=== PATIENT | male | born 1950 | race Caucasian/White ===

== ENCOUNTER → 2016-11-25 | Day surgery (SDC) | payer MEDICARE ==
[~2016-11-25] MED LIST: 1-ME1LIQ PO; ALBUAER3 INH; AMLO10TA2 PO; ANAS1 PO; APIX5 PO; APIX5TAB PO; ARIM1TAB PO; ATOR10TA PO; ATOR10TA15 PO; CARB25TA12 PO; CITA10TA4 PO; DUONI NEB; GUAI600 PO; LACTATED RINGER'S 1000 ML INJ 1,000 ML ONE; MULT1TAB46 PO; OMEP20TA39 PO; OMEP40CA2 PO; PRED20 PO; PRIM50TA PO; PROPOFOL 200 MG/20 ML AMP IV PUSH ONE; SYMB80AE INH; TEST-55; TEST-55 PO; TIZA4 PO; Z.0.OXYGENDME NC; ZANA4CAP PO; ZITHTAB PO
--- NOTE | 2016-11-25 10:12 | GIPROC ---
[facility] [address] [facility], [address] EGD PROCEDURE REPORT EXAM DATE: 11/25/2016 PATIENT NAME: Tremaine Mosqueda MR #: [id number] BIRTHDATE: 1950 ATTENDING: Lamont Tello MD ORDER #: [id number] IRON PILER: Nyla Silvestre STATUS: outpatient INDICATIONS: The patient is a 66 yr old male here for an EGD due to history of Marcelo's esophagus PROCEDURE PERFORMED: EGD w/ biopsy MEDICATIONS: None and Per Anesthesia. TOPICAL ANESTHETIC: CONSENT: The patient understands the risks and benefits of the procedure and understands that these risks include, but are not limited to: sedation, allergic reaction, infection, perforation and/or bleeding. Alternative means of evaluation and treatment include, among others: physical exam, x-rays, and/or surgical intervention. The patient elects to proceed with this endoscopic procedure. medical equipment was checked for proper function. Hand hygiene and appropriate measures for infection prevention was taken. After the risks, benefits and alternatives of the procedure were thoroughly explained, Informed consent was verified, confirmed and timeout was successfully executed by the treatment team. The patient was anesthetized with topical anesthesia and the EG-2990i ([id number]) endoscope was introduced through the mouth and advanced to the second portion of the duodenum. Retroflexed views revealed no abnormalities The gastroscope was then slowly withdrawn and removed. ESOPHAGUS: The mucosa of the esophagus appeared normal. Multiple biopsies were performed. The endoscopy was otherwise normal. ADVERSE EVENTS: There were no complications. IMPRESSIONS: 1. The esophagus appeared normal; multiple biopsies were performed 2. Normal endoscopy otherwise 3. Retroflexed views revealed no abnormalities RECOMMENDATIONS: 1. Await biopsy results. Biopsy results will not be ready for 7-10 days. If you don't hear from us in two weeks, call our office for biopsy results. 2. Follow-up: GI clinic PRN PATIENT CONDITION: stable DISPOSITION: Home REPEAT EXAM: Return 1 year EGD Lamont Tello MD eSigned: Lamont Tello MD 11/25/2016 10:11 AM cc: Chun Segura, [facility] [place]
== END | disposition home or self-care (01) ==
LOC: ESDC 08:29
PROVIDERS: ATTEND Internal Medicine Gastroenterology
DX: K22.711 Barrett's esophagus with high grade dysplasia (principal)
CPT/HCPCS: 00740; 43239; 88305; J3010; J7120

== ENCOUNTER → 2017-01-08 | Day surgery (SDC) | payer MEDICARE ==
[~2017-01-08] MED LIST changes: +PROPOFOL 200 MG/20 ML AMP IV ONE; -PROPOFOL 200 MG/20 ML AMP IV PUSH ONE
--- NOTE | 2017-01-08 15:47 | GIPROC ---
[facility] [address] [facility], [address] EGD PROCEDURE REPORT EXAM DATE: 01/08/2017 PATIENT NAME: Tremaine Mosqueda MR #: [id number] BIRTHDATE: 1950 ATTENDING: Lamont Tello MD ORDER #: [id number] TOP COATER: Bisi Blanco RN STATUS: outpatient INDICATIONS: The patient is a 66 yr old male here for an EGD due to follow up of Marcelo's esophagus PROCEDURE PERFORMED: EGD w/ biopsy MEDICATIONS: None, Per Anesthesia, None, and Per Anesthesia. TOPICAL ANESTHETIC: CONSENT: The patient understands the risks and benefits of the procedure and understands that these risks include, but are not limited to: sedation, allergic reaction, infection, perforation and/or bleeding. Alternative means of evaluation and treatment include, among others: physical exam, x-rays, and/or surgical intervention. The patient elects to proceed with this endoscopic procedure. medical equipment was checked for proper function. Hand hygiene and appropriate measures for infection prevention was taken. After the risks, benefits and alternatives of the procedure were thoroughly explained, Informed consent was verified, confirmed and timeout was successfully executed by the treatment team. The patient was anesthetized with topical anesthesia and the EG-2990i ([id number]) endoscope was introduced through the mouth and advanced to the second portion of the duodenum. Retroflexed views revealed no abnormalities The gastroscope was then slowly withdrawn and removed. ESOPHAGUS: Nodule distal esophagus this was biopsied. The endoscopy was otherwise normal. ADVERSE EVENTS: There were no complications. IMPRESSIONS: 1. Nodule distal esophagus this was biopsied 2. Normal endoscopy otherwise 3. Retroflexed views revealed no abnormalities RECOMMENDATIONS: 1. Await biopsy results. Biopsy results will not be ready for 7-10 days. If you don't hear from us in two weeks, call our office for biopsy results. 2. Follow-up: GI clinic 2 week(s) 3. Probably EGD with EMR and EUS at [place] soon PATIENT CONDITION: stable DISPOSITION: Home REPEAT EXAM: Lamont Tello MD eSigned: Lamont Tello MD 01/08/2017 3:46 PM cc: Chun Segura [facility] [place]
== END | disposition home or self-care (01) ==
LOC: ESDC 12:26
PROVIDERS: ATTEND Internal Medicine Gastroenterology
DX: K22.70 Barrett's esophagus without dysplasia (principal); K22.8 Other specified diseases of esophagus
CPT/HCPCS: 00740; 43239; 88305; J3010; J7120

== ENCOUNTER → 2017-01-31 | Outpatient (CLI) | payer MEDICARE ==
[~2017-01-31] VITALS: Ht 175.3 cm; Wt 125.1 kg
[~2017-01-31] MED LIST changes: -1-ME1LIQ PO; -APIX5 PO; -ARIM1TAB PO; -ATOR10TA PO; +CHLORHEXIDINE GLUCONATE 2 % 1 PACK (2 CLOTHS) TOPICAL PRN; +DO NOT ADM ANY ANTICOAGULANT DRUGS PRN; -DUONI NEB; -GUAI600 PO; +INSULIN HUMAN REGULAR 1,000 UNITS/10 ML VIAL SQ PRN; -LACTATED RINGER'S 1000 ML INJ 1,000 ML ONE; +LACTATED RINGER'S 1000 ML IV PRN; +METOPROLOL TARTRATE 25 MG TAB PO PRN; -OMEP20TA39 PO; +ONDANSETRON HCL 4 MG/2 ML VIAL IV PUSH ONE; +POVIDONE IODINE 5% (ANTISEPSIS KIT) 4 APPLICATIONS EACH NARE PRN; -PRED20 PO; -PRIM50TA PO; +SODIUM CHLORID 0.9% 500 ML IV PRN; +SUGAMMADEX SODIUM 200 MG/2 ML VIAL IV PUSH ONE; -TEST-55; -TIZA4 PO; -Z.0.OXYGENDME NC; -ZITHTAB PO
[2017-01-31 13:07] VITALS: BP 142/74; PULSE 73; RESP 18; TEMP 98.2; O2SAT 97
--- NOTE | 2017-01-31 15:36 | PD.PROCEDR ---
GI Procedure PROCEDURE PERFORMED EUS followed by an EGD with snare resection INDICATION FOR PROCEDURE Esophageal nodule with known history of Marcelo's esophagus PROCEDURE: The procedure, risks and benefits were discussed with Mr. Mosqueda and informed consent was obtained. Anesthesia sedated him with Diprivan. He was placed in the left lateral decubitus position. EUS and EGD: The Pentax videoscope was introduced through the oropharynx and advanced to the second portion of the duodenum under direct visualization. Retroflexion was performed in the stomach. FINDINGS: Initially an EUS was performed of the esophagus to further evaluate the Marcelo' s and the lower esophageal nodule the nodule appeared to be a mildly hypoechoic lesion measuring 0.3 x 0.6 mm arising from the second layer no lymphadenopathy noted otherwise the esophageal wall was unremarkable On EGD The esophagus the nodule was noted at the GE junction and this was superficial as evidence by endoscopic ultrasound this was excised using hot snare technique this was retrieved further evaluation also noted was a short segment Marcelo's in the distal esophagus and distal mucosal hyperplasia probably indicative of chronic reflux The stomach this was unremarkable The duodenum this was unremarkable ESTIMATED BLOOD LOSS: None SPECIMENS REMOVED: Distal esophageal nodule COMPLICATIONS: None IMPRESSION: Distal esophageal nodule Marcelo's esophagus PLAN: Await biopsy Recommend EGD with Barrex ablation to be scheduled in 1-2 months Continue reflux precautions and reflux medication Lamont Tello MD Jan 31, 2017 15:36
[2017-01-31 15:59] VITALS: BP 141/66; PULSE 71; RESP 16; TEMP 98.1; O2SAT 96
== END ==
LOC: HEND 12:39
PROVIDERS: ATTEND Internal Medicine Gastroenterology
DX: K22.70 Barrett's esophagus without dysplasia (principal); D13.0 Benign neoplasm of esophagus
CPT/HCPCS: 00740; 43251; 43259; 88305; J2405

== ENCOUNTER → 2017-05-21 | Day surgery (SDC) | payer MEDICARE ==
[~2017-05-21] MED LIST changes: -CHLORHEXIDINE GLUCONATE 2 % 1 PACK (2 CLOTHS) TOPICAL PRN; -DO NOT ADM ANY ANTICOAGULANT DRUGS PRN; -INSULIN HUMAN REGULAR 1,000 UNITS/10 ML VIAL SQ PRN; -LACTATED RINGER'S 1000 ML IV PRN; -METOPROLOL TARTRATE 25 MG TAB PO PRN; -ONDANSETRON HCL 4 MG/2 ML VIAL IV PUSH ONE; -POVIDONE IODINE 5% (ANTISEPSIS KIT) 4 APPLICATIONS EACH NARE PRN; -SODIUM CHLORID 0.9% 500 ML IV PRN; -SUGAMMADEX SODIUM 200 MG/2 ML VIAL IV PUSH ONE
--- NOTE | 2017-05-21 12:47 | GIPROC ---
[facility] [address] [facility], [address] EGD PROCEDURE REPORT EXAM DATE: 05/21/2017 PATIENT NAME: Tremaine Mosqueda MR #: [id number] BIRTHDATE: 1950 ATTENDING: Lamont Tello MD ORDER #: [id number] YARDER PUNCHER: Param Jenkins RN STATUS: outpatient INDICATIONS: The patient is a 66 yr old male here for an EGD due to follow up of Marcelo's esophagus PROCEDURE PERFORMED: EGD w/ biopsy MEDICATIONS: None, Per Anesthesia, None, and Per Anesthesia. TOPICAL ANESTHETIC: CONSENT: The patient understands the risks and benefits of the procedure and understands that these risks include, but are not limited to: sedation, allergic reaction, infection, perforation and/or bleeding. Alternative means of evaluation and treatment include, among others: physical exam, x-rays, and/or surgical intervention. The patient elects to proceed with this endoscopic procedure. medical equipment was checked for proper function. Hand hygiene and appropriate measures for infection prevention was taken. After the risks, benefits and alternatives of the procedure were thoroughly explained, Informed consent was verified, confirmed and timeout was successfully executed by the treatment team. The patient was anesthetized with topical anesthesia and the EG-2990i ([id number]) endoscope was introduced through the mouth and advanced to the second portion of the duodenum. Retroflexed views revealed no abnormalities The gastroscope was then slowly withdrawn and removed. ESOPHAGUS: There was a 1cm segment of Marcelo's esophagus found at the gastroesophageal junction. There was no nodular mucosa noted in the Marcelo's segment. Multiple biopsies were performed. The endoscopy was otherwise normal. STOMACH: A small hiatal hernia was noted. ADVERSE EVENTS: There were no complications. IMPRESSIONS: 1. There was a 1cm segment of Marcelo's esophagus found at the gastroesophageal junction; multiple biopsies were performed 2. Normal endoscopy otherwise 3. Small hiatal hernia 4. Retroflexed views revealed no abnormalities RECOMMENDATIONS: 1. Await biopsy results. Biopsy results will not be ready for 7-10 days. If you don't hear from us in two weeks, call our office for biopsy results. 2. Continue PPI 3. Follow-up: GI clinic 4 week(s) PATIENT CONDITION: stable DISPOSITION: Home REPEAT EXAM: Return 2 years EGD Lamont Tello MD eSigned: Lamont Tello MD 05/21/2017 12:47 PM cc: Chun Segura [facility] [place] PATIENT NAME: Tremaine Mosqueda MR#: [id number]
== END | disposition home or self-care (01) ==
LOC: ESDC 10:27
PROVIDERS: ATTEND Internal Medicine Gastroenterology
DX: K22.70 Barrett's esophagus without dysplasia (principal); K44.9 Diaphragmatic hernia without obstruction or gangrene
CPT/HCPCS: 00740; 43239; 88305; J3010

== ENCOUNTER → 2017-12-17 | Outpatient (CLI) | payer MEDICARE, BC ==
[~2017-12-17] MED LIST changes: -PROPOFOL 200 MG/20 ML AMP IV ONE
--- NOTE | 2017-12-17 14:53 | RADRPT ---
EXAM DATE/TIME: 12/17/2017 12:47 [place] COMPARISON: No previous studies available for comparison. INDICATIONS : Tremors for over a year. DOSE: 5.2 mCi Ioflupane Iodine-123 in 2.5 ml total volume MEDICATION(S): 130 mg Potasium Iodine PO one hour prior to injection SPECT IMAGIN hrs, 30 min RADIATION DOSE: 30.27 CTDIvol (mGy) MEDICAL HISTORY : Hypertension. Carcinoma, prostate. SURGICAL HISTORY : Prostatectomy. Penile implant. ENCOUNTER: Initial ACUITY: >1 yr PAIN SCALE: 1/10 LOCATION: Head. TECHNIQUE: SPECT imaging of the brain was performed in sagittal, axial and coronal planes. Attenuation correctio n was performed with computed tomography and both the attenuation correction and non-attenuation carolyn ected data sets were reviewed. FINDINGS: There is normal biodistribution of radionuclide with symmetric crescent-shaped areas of activity are in the striatum which appears distinct relative to the surrounding brain tissue. CONCLUSION: Negative DaTscan. Alexandro King MD on December 17, 2017 at 14:47 Board Certified Radiologist. This report was verified electronically.
== END ==
LOC: HRAD 08:12
PROVIDERS: ATTEND Specialist
DX: R25.1 Tremor, unspecified (principal)
CPT/HCPCS: 78607; A9584